=== PATIENT | male | born 1955 | race Caucasian/White ===

== ENCOUNTER 2019-02-25 11:21 | Day surgery (SDC) | payer OTHER ==
[~2019-02-25 11:21] MED LIST: Glycopyrrolate 0.2 MG/ML SDV ONE; Lactated Ringers 1,000 ML IV SCH; Lidocaine 2% 5 ML SDV ONE; Midazolam 1 MG/ML 2 ML SDV ONE; Phenylephrine/Normal Saline 100 MCG/ML 10 ML Syringe ONE; Propofol 200 MG/20 ML SDV ONE
--- NOTE | 2019-02-25 12:23 | PCM.PREANE ---
Preanesthetic Assessment - Anesthesia/Transfusion/Family Hx Anesthesia History: Prior Anesthesia Without Reaction Family History of Anesthesia Reaction: No Transfusion History: No Prior Transfusion(s) - Review of Systems General: No Symptoms Pulmonary: No Symptoms Cardiovascular: No Symptoms Gastrointestinal: No Symptoms Neurological: No Symptoms Other: Reports: None - Physical Assessment NPO Status Date: 02/24/19 Height: 6 ft Weight: 106.141 kg ASA Class: 1 Mental Status: Alert & Oriented x3 Dentition: Reports: Normal Dentition ROM/Head Extension: Full Lungs: Clear to Auscultation, Normal Respiratory Effort Cardiovascular: Regular Rate, Regular Rhythm - Allergies Allergies/Adverse Reactions: Allergies Allergy/AdvReac Type Severity Reaction Status Date / Time No Known Allergies Allergy Verified 02/24/19 08:32 - Blood Blood Available: No - Anesthesia Plan Pre-Op Medication Ordered: None - Acknowledgements Anesthesia Type Planned: General Anesthesia Pt an Appropriate Candidate for the Planned Anesthesia: Yes Alternatives and Risks of Anesthesia Discussed w Pt/Guardian: Yes Pt/Guardian Understands and Agrees with Anesthesia Plan: Yes Additional Comments: PMH: gerd PLAN: tiva PreAnesthesia Questionnaire HEENT History: Reports: Hard of Hearing Other HEENT History: wears glasses, has tyrese hearing aids Cardiovascular History: Reports: None Respiratory History: Reports: None Gastrointestinal History: Reports: GERD Genitourinary History: Reports: None Musculoskeletal History: Reports: Other (See Below) Other Musculoskeletal History: tendon repair, knee and hand Neurological History: Reports: None Psychiatric History: Reports: None Endocrine/Metabolic History: Reports: Obesity/BMI 30+ Hematologic History: Reports: None Immunologic History: Reports: None Oncologic (Cancer) History: Reports: None Dermatologic History: Reports: None - Past Surgical History Head Surgeries/Procedures: Reports: None HEENT Surgical History: Reports: None Cardiovascular Surgical History: Reports: None Respiratory Surgical History: Reports: None GI Surgical History: Reports: Colonoscopy, Hernia, Inguinal Male Surgical History: Reports: None Endocrine Surgical History: Reports: None Neurological Surgical History: Reports: None Musculoskeletal Surgical History: Reports: Arthroscopic Knee, Hip Replacement, Knee Replacement Other Musculoskeletal Surgeries/Procedures:: tyrese knee replacements, rt hip replacement Oncologic Surgical History: Reports: None Dermatological Surgical History: Reports: None - SUBSTANCE USE Smoking Status *Q: Never Smoker Recreational Drug Use History: No - HOME MEDS Home Medications: Home Meds Omeprazole 1 cap PO ACBREAKFAST 01/23/16 [History] Ibuprofen [Advil] 1 tab PO ASDIRECTED PRN 02/24/19 [History] [place]-3/DHA/Epa/Fish Oil [Fish Oil 1,000 mg Softgel] 2 tab PO DAILY 02/24/19 [ History] Sildenafil Citrate [Sildenafil] 100 mg PO ASDIRECTED PRN 02/24/19 [History] - CURRENT (IN HOUSE) MEDS Current Meds: Current Medications Lactated Ringer's (Ringers, Lactated) 1,000 mls @ 125 mls/hr IV ASDIRECTED CAMRYN Discontinued Medications Glycopyrrolate (Robinul) Confirm Administered Dose 0.2 mg .ROUTE .STK-MED ONE Stop: 02/25/19 10:53 Lidocaine (Xylocaine-Mpf 2%) Confirm Administered Dose 5 ml .ROUTE .STK-MED ONE Stop: 02/25/19 11:07 Midazolam HCl (Versed 1 Mg/Ml) Confirm Administered Dose 2 mg .ROUTE .STK-MED ONE Stop: 02/25/19 10:52 Phenylephrine HCl (Phenylephrine In Ns 100 Mcg/Ml) Confirm Administered Dose 1 mg .ROUTE .STK-MED ONE Stop: 02/25/19 11:18 Propofol (Diprivan 20 Ml) Confirm Administered Dose 200 mg .ROUTE .STK-MED ONE Stop: 02/25/19 10:52
--- NOTE | 2019-02-25 13:49 | PCM.POSTAN ---
POST ANESTHESIA ASSESSMENT - MENTAL STATUS Mental Status: Alert, Oriented - VITAL SIGNS Pulse Rate: 60 SaO2: 95 (RA) Resp Rate: 12 Blood Pressure: 110/63 - RESPIRATORY Respiratory Status: Respiratory Rate WNL, Airway Patent, O2 Saturation Stable - CARDIOVASCULAR CV Status: Pulse Rate WNL, Blood Pressure Stable - GASTROINTESTINAL GI Status: No Symptoms - PAIN Pain Score: 0 - POST OP HYDRATION Hydration Status: Adequate & Stable
--- NOTE | 2019-02-25 13:52 | PCM.OPNOTE ---
- General Post-Op/Procedure Note Date of Surgery/Procedure: 02/25/19 Operative Procedure(s): egd w bx. colonoscopy Findings: see dict [id number] Pre Op Diagnosis: gerd and scrn colonoscopy Post-Op Diagnosis: Same Anesthesia Technique: Moderate Sedation Primary Surgeon: Juan Cuellar Pathology: egd bx Complications: None Condition: Good
--- NOTE | 2019-02-25 14:28 | OR ---
SURGEON: Juan Cuellar MD DATE OF PROCEDURE: 02/25/2019 PREOPERATIVE DIAGNOSES: 1. Gastroesophageal reflux disease. 2. Screening colonoscopy. POSTOPERATIVE DIAGNOSES: 1. Gastroesophageal reflux disease. 2. Screening colonoscopy. PROCEDURE PERFORMED: 1. Esophagogastroduodenoscopy with biopsy. 2. Colonoscopy. DESCRIPTION OF OPERATION: EGD: The patient was taken to the endoscopy room, and with the [employer] SALES EXECUTIVE, Diprivan was administered. A well-lubricated EGD scope was gently inserted through the oropharynx, down the esophagus, passing through the gastroesophageal junction, into the stomach. The mucosa was examined upon the passage. Any etiology will be noted. Once in the stomach, we continued to advance to the distal antrum, passed through the pylorus into the second portion of the duodenum. Again, the mucosa was examined for any abnormality and etiology. The scope was then retrieved back to the stomach and then retroflexed to look at the fundus of the stomach. If a biopsy was indicated, we will biopsy the antrum, body, and gastroesophageal junction. The air will be sucked out while the scope is retrieved to reduce the patient's discomfort. The patient tolerated the procedure well. There were no intraoperative complications. Dr. Cuellar was present through the whole procedure. Prior to surgery, a time-out had been called, the patient identified, procedure identified and antibiotic administered. Colonoscopy: The patient was taken to the endoscopy room. A time out was called, patient identified, and procedure identified. Diprivan was then administrated. Patient went from awake to sleep, hearing doctor talking or door closing is normal. Perineum inspection and digital examination were then performed. A well-lubricated colonoscope was gently inserted through the rectum, advanced past the rectosigmoid junction, the descending colon, splenic flexure, transverse colon, hepatic flexure, ascending colon, arrived to the cecum. Cecum was identified as dictated in the finding. Then the scope was carefully withdrawn while attention was paid to the mucosal surface for any abnormality. Air will be sucked out during the scope withdrawal. At the rectum, retroflexed to examine any rectal diseases, fistula or hemorrhoids. Patient tolerated procedure well. There were no intraoperative complications, and Dr. Cuellar was present throughout the whole procedure. FINDINGS: EGD findings: 1. The patient is easily sedated with [employer]EC[employer]IVE and Diprivan. The patient is soundly snoring. 2. Oropharynx and proximal esophagus are free of disease. No inflammation or stricture. Distal esophagus at GE junction at 40 with moderate amount of salmon-colored change suggests moderate degree of acid reflux. Gastric rugae are normal in appearance and antrum is quite inflamed with 1 area aroused 5 o'clock in the screen, looked like it is a near ulcer. There is no warren ulcer. There is no bleeding, but with some severe inflammation and yellow color suggests it is near ulcer. Duodenum was grossly normal in appearance. No inflammation or other disease. Scope retrieved back to the stomach. Retroflexed look at the fundus of stomach, there is 1 polyp over there, and otherwise no hiatal hernia. Biopsy done at antrum and body with a polyp, GE junction at 40 and sucked out the gas while scope pulling out. Colonoscopy findings: 1. The patient is easily sedated with [employer] EXECUTIVE and Diprivan. The patient is soundly snoring. 2. Bowel prep is average with some liquid stool and no semi-formed stool. 3. Colon rather straightforward. Cecum indicated by ileocecal fold, one-to- one indentation, light emittance, appendiceal orifice. Mucosa examined upon scope pulling out with some irrigation. The patient has mild diverticulosis on the left colon, very mild, maybe 10 diverticula. No signs or symptoms of inflammation or diverticulitis, none of those. The patient does not have any polyp, inflammation, stricture, ulceration, AV malformation, bleeding, none of those. The patient has mild internal hemorrhoids, mild external hemorrhoids. The patient would benefit from repeat colonoscopy in 10 years from today or if clinically indicated otherwise. JEREMI / ISABEL /[id number]
--- NOTE | 2019-02-25 14:44 | PCM48HPAN ---
Post Anesthesia Note - EVALUATION WITHIN 48HRS OF ANESTHETIC Vital Signs in Normal Range: Yes Patient Participated in Evaluation: Yes Respiratory Function Stable: Yes Airway Patent: Yes Cardiovascular Function Stable: Yes Hydration Status Stable: Yes Pain Control Satisfactory: Yes Nausea and Vomiting Control Satisfactory: Yes Mental Status Recovered: Yes Pulse Rate: 60 Resp Rate: 12 Blood Pressure: 110/63
[2019-02-25 15:40] VITALS: BP 115/74
== END 2019-02-25 14:35 | disposition home or self-care (01) ==
LOC: MW.SDS 11:21
PROVIDERS: ATTEND Surgery
DX: Z12.11 Encounter for screening for malignant neoplasm of colon (principal); K57.30 Diverticulosis of large intestine without perforation or abscess without bleeding; K64.8 Other hemorrhoids; K64.4 Residual hemorrhoidal skin tags; K21.0 Gastro-esophageal reflux disease with esophagitis; K29.40 Chronic atrophic gastritis without bleeding; K31.7 Polyp of stomach and duodenum; M51.36 Other intervertebral disc degeneration, lumbar region; Z79.1 Long term (current) use of non-steroidal anti-inflammatories (NSAID); Z79.899 Other long term (current) drug therapy
CPT/HCPCS: 43239; 45378; J2001; J2250; J2704; J3490; J7120; J2370

== ENCOUNTER 2021-03-08 12:31 | Emergency (ER) | payer OTHER ==
[2021-03-08] MEDS ORDERED: traMADol 50 MG Tab PO ONE (13:45)
--- NOTE | 2021-03-08 13:52 | EDM.PDOC ---
ED HPI GENERAL MEDICAL PROBLEM - General Chief Complaint: Lower Extremity Injury/Pain Stated Complaint: INJURY LEFT LEG Time Seen by Provider: 03/08/21 12:52 - History of Present Illness INITIAL COMMENTS - FREE TEXT/NARRATIVE: HISTORY AND PHYSICAL: History of present illness: This is a 65-year-old gentleman who presents ER today secondary to severe acute onset of pain to his left calf that occurred while he was playing pickle ball earlier today. Patient reports that it felt like a sharp pain to his posterior left calf while running. Patient denies any prior injuries to his calf or Achilles. Patient reports that he has had problems with his knees in the past and has had knee replacements. Patient denies any other symptomatology. Patient denies any weakness to his upper or lower extremities. Patient reports that ambulation is limited secondary to pain with flexion extension of his foot. Patient reports that he is able to dorsiflex his foot as well as plantar flex it but has pain with dorsiflexion and plantarflexion. Review of systems: As per history of present illness and below otherwise all systems reviewed and negative. Past medical history: As per history of present illness and as reviewed below otherwise noncontributory. Surgical history: As per history of present illness and as reviewed below otherwise noncontributory. Social history: No reported history of drug abuse. Family history: As per history of present illness and as reviewed below otherwise noncontributory. Physical exam: This patient was seen and evaluated during the 2019 SARS-CoV-2 novel coronavirus pandemic period. Community viral transmission is ongoing at time of this encounter and the emergency department is operating under pandemic response procedures. Constitutional: Patient is oriented to person, place, and time. Appears well- developed and well-nourished. No distress. HEENT: Moist mucous membranes Head: Normocephalic and atraumatic Eyes: Right eye exhibits no discharge. Left eye exhibits no discharge. No scleral icterus Neck: Normal range of motion. No tracheal deviation present. Cardiovascular: Normal rate and regular rhythm. Pulmonary: Effort normal, no respiratory distress. Abdominal: No distention Musculoskeletal: Normal range of motion Neurologic: Alert and oriented to person, place and time. Skin: [place], warm and dry. Psychiatric: Normal mood and affect. Behavior is normal. Judgment and thought content normal. Nursing note and vital signs have been reviewed Patient was tenderness palpation to his left calf. Patient has dorsiflexion and plantarflexion of his foot intact. Patient has a normal Spivey test. Patient's Achilles tendon is intact. Diagnostics: X-ray left tib-fib: No acute fracture dislocation. Therapeutics: Ultram, walking boot DME note: Walking boot was ordered for patient to assist with his recent gastrocnemius muscle tear. This will assist with preventing movement of the muscle and assist with healing of the tear. Patient will need to keep this for approximately 4 to 6 weeks or until cleared by orthopedics. Assessment and plan: 65-year-old gentleman who presents ER today secondary to a likely gastrocnemius tear. Unclear if this is a partial or full tear but appears to be partial since patient is still having pretty good strength to his foot. Patient be placed in a walking boot. Patient was given Ultram to assist with pain. Patient will need referral for orthopedic surgery and possible MRI for evaluation of the extent of the injury. Reassessment at the time of disposition demonstrates that the patient is in no acute distress. The patient has remained stable throughout the entire ED visit and is without objective evidence for acute process requiring urgent intervention or hospitalization. The patient is stable for discharge, counseling is provided as documented above, discussed symptomatic treatment and specific conditions for return. I have spoken with the patient/caregiver and discussed todays findings, in a ddition to providing specific details for the plan of care. Questions are answered and there is agreement with the plan. Definitive disposition and diagnosis as appropriate pending reevaluation and r tarunw of above. left calf Pain Score (Numeric/FACES): 5 - Related Data Allergies Allergy/AdvReac Type Severity Reaction Status Date / Time No Known Allergies Allergy Verified 03/08/21 12:50 Home Meds: Home Meds Omeprazole 1 cap PO ACBREAKFAST 01/23/16 [History] Ibuprofen [Advil] 1 tab PO ASDIRECTED PRN 02/24/19 [History] [place]-3/DHA/Epa/Fish Oil [Fish Oil 1,000 mg Softgel] 2 tab PO DAILY 02/24/19 [History] Sildenafil Citrate 100 mg PO ASDIRECTED PRN 02/24/19 [History] Ibuprofen 600 mg PO Q6HR PRN #30 tablet 03/08/21 [Rx] traMADol [Ultram] 50 mg PO Q6H PRN #12 tab 03/08/21 [Rx] Past Medical History - Past Health History Medical/Surgical History: Denies Medical/Surgical History HEENT History: Reports: Hard of Hearing Other HEENT History: wears glasses, has tyrese hearing aids Cardiovascular History: Reports: None Respiratory History: Reports: None Gastrointestinal History: Reports: GERD Genitourinary History: Reports: None Musculoskeletal History: Reports: Other (See Below) Other Musculoskeletal History: tendon repair, knee and hand Neurological History: Reports: None Psychiatric History: Reports: None Endocrine/Metabolic History: Reports: Obesity/BMI 30+ Hematologic History: Reports: None Immunologic History: Reports: None Oncologic (Cancer) History: Reports: None Dermatologic History: Reports: None - Infectious Disease History Infectious Disease History: Reports: None - Past Surgical History Head Surgeries/Procedures: Reports: None HEENT Surgical History: Reports: None Cardiovascular Surgical History: Reports: None Respiratory Surgical History: Reports: None GI Surgical History: Reports: Colonoscopy, Hernia, Inguinal Male Surgical History: Reports: None Endocrine Surgical History: Reports: None Neurological Surgical History: Reports: None Musculoskeletal Surgical History: Reports: Arthroscopic Knee, Hip Replacement, Knee Replacement Other Musculoskeletal Surgeries/Procedures:: tyrese knee replacements, rt hip repl acement Oncologic Surgical History: Reports: None Dermatological Surgical History: Reports: None Social & Family History - Family History Family Medical History: No Pertinent Family History - Tobacco Use Tobacco Use Status *Q: Never Tobacco User Second Hand Smoke Exposure: No - Caffeine Use Caffeine Use: Reports: None - Recreational Drug Use Recreational Drug Use: No Review of Systems - Review of Systems Review Of Systems: See Below ED EXAM, GENERAL - Physical Exam Exam: See Below Course - Vital Signs Last Recorded V/S: Last Vital Signs Temp 97.8 F 03/08/21 12:47 Pulse 74 03/08/21 12:47 Resp 18 03/08/21 12:47 BP 116/71 03/08/21 12:47 Pulse Ox 98 03/08/21 12:47 - Orders/Labs/Meds Orders: Active Orders 24 hr Category Date Time Status DME for Discharge [COMM] Stat Oth 03/08/21 13:39 Ordered Meds: Medications Discontinued Medications Generic Name Dose Route Start Last Admin Trade Name Freq PRN Reason Stop Dose Admin Tramadol HCl 50 mg 03/08/21 13:45 03/08/21 13:53 Tramadol 50 Mg Tab PO 03/08/21 13:46 50 mg ONETIME ONE Administration Departure - Departure Time of Disposition: 13:47 Disposition: Home, Self-Care 01 Condition: Good Clinical Impression: Strain of left calf muscle Gastrocnemius muscle tear Qualifiers: Encounter type: initial encounter Laterality: left Qualified Code(s): S86.112A - Strain of other muscle(s) and tendon(s) of posterior muscle group at lower leg level, left leg, initial encounter - Discharge Information Prescriptions: Ibuprofen 600 mg PO Q6HR PRN #30 tablet PRN Reason: Pain traMADol [Ultram] 50 mg PO Q6H PRN #12 tab PRN Reason: Pain Instructions: Medial Head Gastrocnemius Tear Rehab-SportsMed, Medial Head Gastrocnemius Tear Referrals: Russ Gregory NP [Primary Care Provider] - Forms: ED Department Discharge Additional Instructions: You were seen and evaluated in the ER today secondary to a likely tear in the medial head of your gastrocnemius muscle. This is one of the muscles in your calf. Your Achilles tendon appears to be intact. 1. You will be placed in a walking boot to assist with healing of your muscle tear. 2. You will need to obtain an MRI of your left calf to further evaluate the extent of injury to your gastrocnemius muscle. 3. You will need to follow-up with an orthopedic surgery physician for further evaluation and management of your injury within 3-5 days. 4. You will be given a prescription for ibuprofen as well as Ultram to assist with your pain. You should rest, elevate, ice the injury when you are at home resting. [facility] [address], [address] [place] [address] The following information is given to patients seen in the emergency department who are being discharged to home. This information is to outline your options for follow-up care. We provide all patients seen in our emergency department with a follow-up referral. The need for follow-up, as well as the timing and circumstances, are variable depending upon the specifics of your emergency department visit. If you don't have a primary care physician on staff, we will provide you with a referral. We always advise you to contact your personal physician following an emergency department visit to inform them of the circumstance of the visit and for follow-up with them and/or the need for any referrals to a consulting specialist. The emergency department will also refer you to a specialist when appropriate. This referral assures that you have the opportunity for follow-up care with a specialist. All of these measure are taken in an effort to provide you with optimal care, which includes your follow-up. Under all circumstances we always encourage you to contact your private physician who remains a resource for coordinating your care. When calling for follow-up care, please make the office aware that this follow-up is from your recent emergency room visit. If for any reason you are refused follow-up, please contact the [facility] Emergency Department at and asked to speak to the emergency department charge nurse. [facility] [address] [place] [id number] [facility] [address] [place] [id number] Sepsis Event Note (ED) - Evaluation Sepsis Screening Result: No Definite Risk - Focused Exam Vital Signs: Vital Signs Temp Pulse Resp BP Pulse Ox 03/08/21 12:47 97.8 F 74 18 116/71 98 - My Orders Last 24 Hours: My Active Orders 03/08/21 13:39 DME for Discharge [COMM] Stat - Assessment/Plan Last 24 Hours: My Active Orders 03/08/21 13:39 DME for Discharge [COMM] Stat
--- NOTE | 2021-03-08 13:54 | CR ---
HISTORY: Pain. Calf tear. TECHNIQUE: Left tibia and fibula 2 views. COMPARISON: None. FINDINGS: Total knee arthroplasty. Visualized hardware appears intact. No fracture. No osteolysis. Ankle joint is maintained. IMPRESSION: Left knee arthroplasty. No acute bone abnormality. Dictated by Nik Duckworth MD @ 03/08/2021 1:53:[address] Nik Duckworth @ Mar 08 2021 1:53PM
[2021-03-08 14:30] VITALS: BP 118/82; PULSE 88
== END 2021-03-08 14:21 | disposition home or self-care (01) ==
LOC: MW.ED 12:31
DX: S86.112A Strain of other muscle(s) and tendon(s) of posterior muscle group at lower leg level, left leg, initial encounter (principal); E66.9 Obesity, unspecified; K21.9 Gastro-esophageal reflux disease without esophagitis; Z68.30 Body mass index [BMI] 30.0-30.9, adult; Z79.899 Other long term (current) drug therapy; X50.9XXA Other and unspecified overexertion or strenuous movements or postures, initial encounter; Y93.02 Activity, running
CPT/HCPCS: 73590; 99283; A9270

== ENCOUNTER 2023-12-28 08:36 | Emergency (ER) | payer OTHER ==
[2023-12-28 08:52] VITALS: PULSE 58
[2023-12-28] MEDS: Ibuprofen 600 MG Tab PO ONE (08:57)
[2023-12-28 10:24] VITALS: BP 136/70
== END 2023-12-28 10:24 | disposition home or self-care (01) ==
LOC: MW.ED 08:36
DX: S59.901A Unspecified injury of right elbow, initial encounter (principal); K21.9 Gastro-esophageal reflux disease without esophagitis; X50.1XXA Overexertion from prolonged static or awkward postures, initial encounter
CPT/HCPCS: 73080; 99283; A9270

== ENCOUNTER 2024-03-09 09:52 | Day surgery (SDC) | payer OTHER ==
[2024-03-09] MEDS: Lactated Ringers 1,000 ML IV SCH (10:45)
[2024-03-09] MEDS ORDERED: propofoL 50 ML ONE (11:21)
[2024-03-09] MEDS ORDERED: Propofol 200 MG/20 ML SDV ONE (11:45)
[2024-03-09] MEDS ORDERED: Lactated Ringers 1,000 ML IV SCH (12:30)
[2024-03-09 13:15] VITALS: BP 102/66; PULSE 78
== END 2024-03-09 12:45 | disposition home or self-care (01) ==
LOC: MW.SDS 09:52
PROVIDERS: ATTEND Surgery
DX: K57.30 Diverticulosis of large intestine without perforation or abscess without bleeding (principal); K62.5 Hemorrhage of anus and rectum; K21.9 Gastro-esophageal reflux disease without esophagitis; Z79.899 Other long term (current) drug therapy
CPT/HCPCS: 45378; J2704; J7120

== ENCOUNTER 2024-03-22 19:27 | Emergency (ER) | payer OTHER ==
[2024-03-22] MEDS: Sodium Chloride 0.9% 10 ML Syringe FLUSH PRN (19:47)
[2024-03-22] MEDS: Ondansetron 4 MG/2 ML SDV IVPUSH ONE (19:47)
[2024-03-22] MEDS: Famotidine 20 MG/2 ML SDV IVPUSH ONE (19:47)
[2024-03-22] MEDS: Sodium Chloride 0.9% 2.5 ML Syringe FLUSH PRN (19:47)
[2024-03-22] MEDS: Albuterol/Ipratropium 3.0-0.5 MG/3 ML Neb Soln NEB ONE (19:47)
[2024-03-22 20:09] LABS: BASOPHILS ABSOLUTE AUTO 0.05 K/uL (0.00-0.20); BASOPHILS PERCENT AUTO 0.6 % (0.0-1.0); EOSINOPHILS ABSOLUTE AUTO 0.31 K/uL (0.00-0.45); EOSINOPHILS PERCENT AUTO 3.8 % (0.0-6.0); HEMATOCRIT 43.3 % (42.0-52.0); HEMOGLOBIN 15.2 g/dL (14.0-18.0); IMMATURE GRAN ABSOLUTE AUTO 0.02 K/uL (0.00-0.05); IMMATURE GRAN PERCENT AUTO 0.2 % (0.0-0.4); MEAN CORPUSCULAR HEMOGLOBIN 30.8 pg (28.0-32.0); MEAN CORPUSCULAR HGB CONC 35.1 g/dL (32.0-36.0); MEAN CORPUSCULAR VOLUME 87.7 fL (83.0-99.0); MEAN PLATELET VOLUME 10.2 fL (9.4-12.4); MONOCYTES ABSOLUTE AUTO 0.69 K/uL (0.00-0.80); MONOCYTES PERCENT AUTO 8.5 % (0.0-8.0); NEUTROPHILS ABSOLUTE AUTO 4.46 K/uL (1.80-7.70); NEUTROPHILS PERCENT AUTO 54.9 % (41.0-71.0); PLATELET COUNT,PLT 224 K/uL (150-400); RED BLOOD CELL COUNT 4.94 M/uL (4.52-5.90); WHITE BLOOD CELL COUNT,WBC 8.13 K/uL (3.9-11.3)
[2024-03-22 20:23] LABS: A/G RATIO 1.2 (0.9-1.6); ALANINE AMINOTRANSFERASE,ALT 28 IU/L (14-63); ALBUMIN 4.1 g/dL (3.4-5.0); ALKALINE PHOSPHATASE 66 U/L (46-116); ASPARTATE AMNIOTRANSFERASE,AST 22 IU/L (15-37); BILIRUBIN TOTAL 0.4 mg/dL (0.2-1.0); BLOOD UREA NITROGEN,BUN 14 mg/dL (7.0-18.0); CARBON DIOXIDE,CO2 25.9 mmol/L (21.0-32.0); CHLORIDE,CL 105 mmol/L (98-107); EST CRCL DRUG DOSING (CG) 79.76 mL/min; GLUCOSE RANDOM 112 mg/dL (74-106); LIPASE 55 U/L (16-77); POTASSIUM,K 4.1 mmol/L (3.5-5.1); PROTEIN TOTAL,TP 7.4 g/dL (6.4-8.2); SODIUM,NA 141 mmol/L (136-148)
[2024-03-22 20:25] LABS: ESTIMATED GFR 83 mL/min (>60)
[2024-03-22] MEDS: Sucralfate Suspension 1 GM/10 ML Cup PO ONE (21:24)
[2024-03-22] MEDS: Aspirin 81 MG Tab.Chew PO ONE (21:24)
[2024-03-22] MEDS: Iopamidol 755 MG/ML 500 ML Multipack Bottle IVPUSH ONE (21:52)
[2024-03-22 22:07] VITALS: BP 117/65; PULSE 58
[2024-03-22] MEDS: Enoxaparin 100 MG/1 ML Syringe SUBCUT STA (23:44)
== END 2024-03-23 00:54 ==
LOC: MW.ED 19:27
DX: I20.0 Unstable angina (principal)
CPT/HCPCS: 36415; 71045; 71275; 80053; 83690; 84484; 85025; 85379; 93005; 96374; 96375; 99285; A9270; J1650; J2405; J3490; Q9967; 93010; J7620-GY

== ENCOUNTER 2025-03-23 15:08 | Emergency (ER) | payer OTHER ==
[2025-03-23 15:34] VITALS: BP 123/84; PULSE 72
== END 2025-03-23 17:01 | disposition home or self-care (01) ==
LOC: MW.ED 15:08
DX: M79.671 Pain in right foot (principal); K21.9 Gastro-esophageal reflux disease without esophagitis; Z75.3 Unavailability and inaccessibility of health-care facilities; Z79.899 Other long term (current) drug therapy
CPT/HCPCS: 73630-26-RT; 73630-RT; 99282; 99283

== ENCOUNTER 2025-06-03 10:52 | Emergency (ER) | payer OTHER ==
[2025-06-03 11:34] VITALS: BP 127/74
[2025-06-03 13:06] VITALS: PULSE 74
== END 2025-06-03 13:06 | disposition home or self-care (01) ==
LOC: MW.ED 10:52
DX: S90.32XA Contusion of left foot, initial encounter (principal); K21.9 Gastro-esophageal reflux disease without esophagitis; Z79.899 Other long term (current) drug therapy; W20.8XXA Other cause of strike by thrown, projected or falling object, initial encounter
CPT/HCPCS: 73630; 99283; A9270